=== PATIENT | female | born 1995 | race Caucasian/White ===

== ENCOUNTER 2022-04-09 18:55 | Emergency (ER) | payer BC, MEDICAID ==
[~2022-04-09] VITALS: Ht 154.9 cm; Wt 74.8 kg
[2022-04-09 19:18] VITALS: BP 133/104
--- NOTE | 2022-04-09 19:26 | NUR ---
AUGUST. HANDED ON URINE CUP.
--- NOTE | 2022-04-09 19:32 | NUR ---
PT TO BED #4
[2022-04-09] MEDS ORDERED: ONDANSETRON 4 MG/2 ML VIAL IVP ONE (19:45)
[2022-04-09] MEDS ORDERED: NACL 0.9% 1,000 ML IV ONE (19:45)
[2022-04-09] MEDS ORDERED: MORPHINE SULFATE 4 MG/ML SYR IVP ONE (19:45)
[2022-04-09 20:01] LABS: BASOPHILS % (AUTO) 0.4 % (0.0-2.0); EOSINOPHILS # (AUTO) 0.5 K/uL (0-0.4); EOSINOPHILS % (AUTO) 4.5 % (0.0-4.0); HEMATOCRIT 25.2 % (36-48); HEMOGLOBIN 8.4 g/dL (12.0-16.0); LYMPHOCYTES # (AUTO) 2.3 K/uL (2.5-16.5); LYMPHOCYTES % (AUTO) 20.1 % (20.5-51.1); MEAN CORPUSCULAR HEMOGLOBIN 28 pg (27-31); MEAN CORPUSCULAR HGB CONC 34 g/dL (33-37); MEAN CORPUSCULAR VOLUME 82.7 fL (80-94); MONOCYTES # (AUTO) 0.6 K/uL (0.8-1.0); MONOCYTES % (AUTO) 4.9 % (1.7-9.3); NEUTROPHILS # (AUTO) 8.1 K/uL (1.8-7.7); NEUTROPHILS % (AUTO) 70.1 % (42.2-75.2); PLATELET COUNT (AUTO) 347 K/uL (140-450); RED BLOOD CELL COUNT(AUTO) 3.04 MIL/uL (4.20-5.40); RED CELL DISTRIBUTION WIDTH 18.4 % (11.6-13.7); WHITE BLOOD COUNT (AUTO) 11.6 K/uL (4.8-10.8)
[2022-04-09 20:20] LABS: ANION GAP 14.4 (8-16); CARBON DIOXIDE 23.1 mmol/L (21-32); CREATININE 1.2 mg/dL (0.6-1.3); POTASSIUM 4.5 mmol/L (3.5-5.1); TOTAL BILIRUBIN 0.2 mg/dL (0.0-1.0)
[2022-04-09 20:56] LABS: APPEARANCE,URINE CLEAR (CLEAR); BILIRUBIN,URINE NEGATIVE (NEGATIVE); BLOOD, URINE 3+ (NEGATIVE); COLOR,URINE YELLOW (YELLOW); LEUKOCYTE ESTERASE ,URINE TRACE (NEGATIVE); NITRITE, URINE NEGATIVE (NEGATIVE); UGLUCOSE NEGATIVE (NEGATIVE)
[2022-04-09 21:08] LABS: RBC,URINE 20-50 /HPF (0-5)
[2022-04-09 21:09] LABS: OTHER CASTS, URINE None Seen /LPF (None Seen)
--- NOTE | 2022-04-09 22:00 | NUR ---
# 16 FR [place] catheter with 10 ml utilizing sterile technique. Immediate return of 2000 ml YELLOW urine noted. Bedside drainage bag placed below level of bladder. Pt tolerated procedure WELL.
--- NOTE | 2022-04-09 22:05 | NUR ---
pt wanted to hold off on inserting the iv catheter as well as her scheduled morphine ivp and zofran ivp because she wasn't sure if she wanted to stay in the hospital.
--- NOTE | 2022-04-09 22:13 | NUR ---
PER SAIMA RICHEY ARMENTA CATHETER INSERTION IS THE ONLY TX FOR PATIENT AT THIS TIME. ALICIA REFUSED ALL OTHER TX. AFTER INSERTION PATIENT WILL BE DISCHARGED HOME.
[2022-04-09] MEDS ORDERED: CEPH-588 PO (22:16)
[2022-04-09 22:24] VITALS: BP 129/98
== END 2022-04-09 22:24 | disposition home or self-care (01) ==
LOC: MED 18:55
DX: O86.20 Urinary tract infection following delivery, unspecified (principal); R33.9 Retention of urine, unspecified; Z79.899 Other long term (current) drug therapy
CPT/HCPCS: 36415; 51702; 76830; 80053; 81001; 83605; 85025; 87040; 87086; 99284; Q0092

== ENCOUNTER 2022-04-15 14:38 | Emergency (ER) | payer BC, MEDICAID ==
[~2022-04-15] VITALS: Ht 154.9 cm; Wt 65.4 kg
[~2022-04-15 14:38] MED LIST: CEPH-588 PO
[2022-04-15 14:51] VITALS: BP 123/70
--- NOTE | 2022-04-15 19:45 | NUR ---
26YR OLD FEMALE BIB SELF C/O ARMENTA D/C. PT IS POST PART NORMAL VAG DELIVERY 04/06. PT HAD ARMENTA FOR URINARY RETENION. DENIES ANY PAIN. PT IS A&OX4. ARMENTA REMOVED, PT TOLERATED WELL.
[2022-04-15 20:02] VITALS: BP 123/70
--- NOTE | 2022-04-15 20:02 | NUR ---
Patient discharged with v/s stable. Written and verbal after care instructions given and explained. Patient verbalized understanding. Ambulatory with steady gait. All questions addressed prior to discharge. Advised to follow up with PMD.
== END 2022-04-15 20:02 | disposition home or self-care (01) ==
LOC: MED 14:38
DX: Z46.6 Encounter for fitting and adjustment of urinary device (principal)
CPT/HCPCS: 51701; 99281; 99284